=== PATIENT | female | born 1985 | race Caucasian/White ===

== ENCOUNTER 2019-04-26 18:27 | Emergency (ER) | payer MEDICAID ==
[~2019-04-26] VITALS: Ht 149.9 cm; Wt 77.2 kg
[2019-04-26 18:30] VITALS: BP 102/42
--- NOTE | 2019-04-26 18:44 | NUR ---
ICE PACK R WRIST
== END 2019-04-26 19:56 | disposition home or self-care (01) ==
LOC: ED 19:45
DX: M25.531 Pain in right wrist (principal); M77.9 Enthesopathy, unspecified
CPT/HCPCS: 29125; 99283